=== PATIENT | female | born 1990 | race African-American/Black ===

== ENCOUNTER 2021-06-30 08:55 | Emergency (ER) | payer OTHER ==
[2021-06-30 09:12] VITALS: BP 164/100; PULSE 82; TEMP 99.1; BMI 34.4
== END 2021-06-30 09:40 | disposition home or self-care (01) ==
LOC: FER 08:55
DX: S13.4XXA Sprain of ligaments of cervical spine, initial encounter (principal); V49.9XXA Car occupant (driver) (passenger) injured in unspecified traffic accident, initial encounter
CPT/HCPCS: 99283-25